=== PATIENT | male | born 1970 | race Caucasian/White ===

== ENCOUNTER 2022-10-10 18:47 | Emergency (ER) | payer OTHER ==
[2022-10-10 18:59] VITALS: BP 138/87; PULSE 101; RESP 17; TEMP 98.8; BMI 34.7
[2022-10-10 22:07] LABS: BASO % 0.5 % (0-2.0); EOS % 0.2 % (0-4.5); HEMATOCRIT 43.8 % (35.4-49); HEMOGLOBIN 15.1 GM/dL (11.7-16.9); LYMPH % 10.3 % (8-40); MCH 29.9 pg (25.7-33.7); MCHC 34.3 g/dl (32.0-35.9); MEAN CELL VOLUME 87.1 fl (80-96); MONO % 10.8 % (3.8-10.2); NEUT % 78.2 % (42.8-82.8); PLATELET COUNT 171 10^3/uL (134-434); RBC 5.03 M/mm3 (4.00-5.60); RDW 15.1 % (11.9-15.9); WHITE BLOOD COUNT 17.9 K/mm3 (4.0-10.0)
[2022-10-10 22:22] LABS: POTASSIUM 4.1 mmol/L (3.5-5.1)
[2022-10-10] MEDS ORDERED: CEFTRIAXONE 1 GM in DEXTROSE 5%-WATER - 50 ML IVPB ONE (22:22)
[2022-10-10] MEDS ORDERED: SODIUM CHLORIDE 0.9% 500 ML INFUS.BAG IV ONE (22:24)
[2022-10-10 22:25] LABS: ALBUMIN 3.5 g/dl (3.4-5.0); BLOOD UREA NITROGEN 10.4 mg/dL (7-18)
[2022-10-10 22:28] LABS: CREATININE 0.8 mg/dL (0.55-1.3)
[2022-10-10 22:29] LABS: TOT PROT 8.2 g/dl (6.4-8.2)
[2022-10-10 22:36] LABS: BILIRUBIN,TOTAL 1.6 mg/dL (0.2-1)
[2022-10-10] MEDS ORDERED: CEFTRIAXONE 1 GM/50 ML BAG ONE (22:47)
[2022-10-10 22:54] LABS: EPI CELLS 5 /uL (0-25.1); HYALINE CASTS 1 /uL (0-3.1); PH,URINE 5.5 (5.0-8.0); URINE APPEARANCE TURBID; URINE BILIRUBIN 1+ (NEGATIVE); URINE COLOR ORANGE; URINE GLUCOSE (UA) NEGATIVE (NEGATIVE); URINE KETONE TRACE (NEGATIVE); URINE LEUK ESTERASE 3+ (NEGATIVE); URINE NITRITE POSITIVE (NEGATIVE); URINE PROTEIN 2+ (NEGATIVE); URINE RBC 417 /uL (0-23.9); URINE WBC 4378 /uL (0-25.8)
== END 2022-10-11 00:22 | disposition home or self-care (01) ==
LOC: JER 18:47
PROC: 3E033GC Introduction of Other Therapeutic Substance into Peripheral Vein, Percutaneous Approach (ICD-10-PCS; principal; 2022-10-10)
DX: R30.0 Dysuria (principal); R10.9 Unspecified abdominal pain; R19.7 Diarrhea, unspecified; R11.0 Nausea; N48.89 Other specified disorders of penis; N39.0 Urinary tract infection, site not specified
CPT/HCPCS: 36415; 74176-TC; 80053; 81003; 85025; 87077; 87086; 87186; 99284-25